=== PATIENT | female | born 1990 | race Caucasian/White ===

== ENCOUNTER → 2017-02-04 | Outpatient (CLI) | payer BC ==
--- NOTE | ~2017-02-04 | US98 ---
[facility] A Service of [facility] RADIOLOGY TEXT RESULTS PATIENT: LYNNETTE KELLER LOCATION: [facility] : [birth year] UNIT #: [id number] AGE: [address]: William Clay MD SEX: F ORDER DR: [id number] [facility] [address] [place], [place] [address] [id number] O MR#: [id number] Acc #: [id number] NAME: LYNNETTE KELLER : 1990 SEX: F STUDY DATE/TIME: 02/04/2017 11:51 UNIT: [facility] ROOM: STUDY DESCRIPTION: US Pelvic Non-OB Complete Attending Physician: William Clay M.D. Ordering Physician: William Clay M.D. Primary Care Physician: William Clay M.D. MEDICAL IMAGING REPORT This report is preliminary unless electronic signature is present EXAM Pelvic ultrasound HISTORY Irregular menses started in September. Last normal menstrual period was December 19, 2016. TECHNIQUE [place]-scale, color Doppler and spectral Doppler waveform analysis performed through the pelvis, both transabdominally and transvaginally. FINDINGS Patient has a simple-appearing right ovarian cyst measuring 2.3 x 3.2 x 2.2 cm. Normal color Doppler flow is seen within the right ovary, as well as within the left ovary. The uterus is homogeneous in echotexture. Endometrium is not thickened and if anything, is actually rather thinned. IMPRESSION 1. Simple-appearing right ovary cyst measuring 2.3 x 3.2 x 2.2 cm. 2. Endometrium does appear somewhat thinned, which can be a normal finding during menstruation. However, patient's last normal menstrual period was reportedly in November of 2016 and I would expect it to be thicker at this point. Gynecologic consultation could be considered. Dictated by... Nellie Pastor M.D. THIS IS AN ELECTRONICALLY VERIFIED REPORT Nellie Pastor M.D. at 02/07/2017 7:56 AM AFF/pcl [facility] A Service of [facility] RADIOLOGY TEXT RESULTS PATIENT: LYNNETTE KELLER LOCATION: [facility] : [birth year] UNIT #: [id number] AGE: [address]: William Clay MD SEX: F ORDER DR: TD: 02/04/2017 21:39 JOB #: [id number] MEDICAL IMAGING REPORT Page 1 of 1 COPY
== END | disposition home or self-care (01) ==
LOC: CWCC 11:22
DX: N92.6 Irregular menstruation, unspecified (principal); N83.201 Unspecified ovarian cyst, right side
CPT/HCPCS: 76830; 76856